=== PATIENT | male | born 1965 | race Native Hawaiian/Other Pacific Islander ===

== ENCOUNTER 2017-07-15 13:51 | Emergency (ER) | payer OTHER ==
[~2017-07-15] VITALS: Ht 180.3 cm; Wt 77.1 kg
[2017-07-15 14:02] VITALS: TEMP 97.2
[2017-07-15 15:00] VITALS: BP 168/82
== END 2017-07-15 15:36 | disposition short-term general hospital (02) ==
LOC: ED 13:51
DX: S66.50 Unspecified injury of intrinsic muscle, fascia and tendon of other and unspecified finger at wrist and hand level (principal); X58.XXXA Exposure to other specified factors, initial encounter; Y92.69 Other specified industrial and construction area as the place of occurrence of the external cause
CPT/HCPCS: 99285; J0696; J1885

== ENCOUNTER 2018-12-21 08:56 | Emergency (ER) | payer OTHER ==
[~2018-12-21] VITALS: Ht 180.3 cm; Wt 77.1 kg
[2018-12-21 09:00] VITALS: TEMP 98.1
[2018-12-21 10:40] VITALS: BP 134/69
== END 2018-12-21 10:40 | disposition home or self-care (01) ==
LOC: ED 08:56
PROC: 0HQGXZZ Repair Left Hand Skin, External Approach (ICD-10-PCS; principal; 2018-12-21)
DX: S61.012A Laceration without foreign body of left thumb without damage to nail, initial encounter (principal); X58.XXXA Exposure to other specified factors, initial encounter
CPT/HCPCS: 90471; 90715; 96372; 99283; J0690; J1885; J7040

== ENCOUNTER 2018-12-28 08:12 | Emergency (ER) | payer OTHER | END 2018-12-28 08:47 | disposition home or self-care (01) | LOC: ED 08:12 | DX: Z48.02 Encounter for removal of sutures (principal) ==